=== PATIENT | male | born 1955 | race Caucasian/White ===

== ENCOUNTER → 2021-03-13 07:40 | Outpatient (BNVA) | payer MEDICARE, SELFPAY | PROVIDERS: PCP Internal Medicine; Referring Provider Internal Medicine; Visit Provider Urology | DX: R97.20 Elevated prostate specific antigen [PSA] (principal) | CPT/HCPCS: 81003; 84153 ==

== ENCOUNTER → 2021-06-15 09:02 | Outpatient (BNVA) | payer MEDICARE, SELFPAY | PROVIDERS: PCP Internal Medicine; Visit Provider Urology | DX: R97.20 Elevated prostate specific antigen [PSA] (principal) | CPT/HCPCS: 81003; 84153 ==

== ENCOUNTER → 2021-12-14 12:44 | Outpatient (BNVA) | payer MEDICARE, SELFPAY | PROVIDERS: PCP Internal Medicine; Visit Provider Urology | DX: R97.20 Elevated prostate specific antigen [PSA] (principal) | CPT/HCPCS: 81003; 84153 ==

== ENCOUNTER → 2022-02-02 08:42 | Outpatient (BNVA) | payer MEDICARE, SELFPAY | PROVIDERS: PCP Internal Medicine; Visit Provider Orthopaedic Surgery | DX: M48.062 Spinal stenosis, lumbar region with neurogenic claudication (principal) | CPT/HCPCS: 99203; 99204 ==

== ENCOUNTER 2022-03-19 06:25 | Outpatient (CLI) | payer MEDICARE, SELFPAY ==
--- NOTE | 2022-03-19 07:15 | MR_ITS ---
WS: [id number] MRI LUMBAR SPINE NONCONTRAST HISTORY: pain and weakness, pain down RIGHT leg, Bilateral feet numbness. COMPARISON: None available. TECHNIQUE: Sagittal and axial multisequence imaging is submitted. Mild increase in cervical lordosis and thoracic kyphosis. Normal lumbar alignment with no compression fractures or marrow edema. Moderate disc space narrowing and desiccation. Conus terminates normally at L1-2 disc level. L1-L2: Mild annular disc bulging and osteophytic ridging. Mild facet and ligamentum flavum hypertroph y with fluid in the facet joints. Mild encroachment upon the subarticular recesses. L2-L3: Mild annular disc bulge, osteophytic ridging, ligamentum flavum and facet arthritis. Encroachm ent upon the thecal sac and subarticular recesses. Mild foraminal narrowing. No focal disc protrusion . Mild central, bilateral subarticular and foraminal stenosis. L3-L4: Mild annular disc bulge with osteophytic ridging. Marked ligamentum flavum hypertrophy and fac et joint arthritis. Marked encroachment into the RIGHT subarticular recess and proximal foramina pred ominantly due to facet joint arthritis and ligamentum flavum hypertrophy. There is significant contac t on the RIGHT lateral thecal sac and to a lesser extent on the LEFT. Moderate to severe central and bilateral subarticular recess stenosis. Mild foraminal stenosis, RIGHT greater than LEFT. Significant contact on the traversing L4 nerve root. L4-L5: Diffuse annular disc bulging and osteophytic ridging. Severe bilateral ligamentum flavum hyper trophy and facet arthritis. Fluid in the facet joints bilaterally. Severe central, bilateral subartic ular recess and mild foraminal stenosis. There is significant contact and deformity on the exiting L5 nerve roots. Severe central stenosis with near complete obliteration of the central canal. L5-S1: Mild annular disc bulging. Very slight disc contact on the S1 nerve roots bilaterally but grea test on the LEFT. MR/MR lumbar spine wo con* [id number] IMPRESSION: 1. Severe central and bilateral subarticular recess stenosis at L4-5. Near-com plete obliteration of the central canal and significant encroachment and deform ity upon the exiting L5 nerve roots. 2. Moderate to severe central and bilateral subarticular recess stenosis at L3 -4. There is significant RIGHT facet joint encroachment into the RIGHT lateral thecal sac and subarticular recess. Stenosis involving the proximal RIGHT bettie en also. Significant contact on the L4 nerve roots. 3. Mild central, bilateral subarticular recess and foraminal stenosis at L2-3. 4. Mild disc contact on the S1 nerve roots bilaterally.
== END 2022-03-19 06:26 | disposition home or self-care (01) ==
LOC: RAD 06:26
PROVIDERS: PCP Internal Medicine; Visit Provider Orthopaedic Surgery
DX: M48.061 Spinal stenosis, lumbar region without neurogenic claudication (principal)
CPT/HCPCS: 72148

== ENCOUNTER → 2022-03-23 09:05 | Outpatient (BNVA) | payer MEDICARE, SELFPAY | PROVIDERS: PCP Internal Medicine; Visit Provider Orthopaedic Surgery | DX: M48.062 Spinal stenosis, lumbar region with neurogenic claudication (principal) | CPT/HCPCS: 99214 ==

== ENCOUNTER 2022-04-26 08:33 | Day surgery (SDC) | payer MEDICARE, SELFPAY ==
[2022-04-19 08:30] VITALS: BMI 24.4
--- NOTE | 2022-04-19 08:46 | ANES.PREANE2 ---
Pre-Anesthetic Assessment Height/Weight: Height 1.8 m Weight 79.379 kg Preop Diagnosis: Lumbar stenosis w/Neurogenic Claaudication Operation Date: 04/26/22 10:20 Proposed Procedures p Lumbar Spine Decompression L3/4 L4/5 [id number] M48.062(Not Applicable) - Emmanuel Foster DO Familial anesthetic complications: None Social Tobacco (chews) and No alcohol Exam alert, oriented x 3, clear to auscultation bilaterally and regular rate & rhythm Airway Mallampati: Class III Dentition: other (no teeth) Pulmonary None reported CV/HEM Hypertension None reported Hepatic None reported GI None reported Metabolic None reported Musc/skel Lower Back Pain Neuropsych None reported Anesthetic Plan ASA status: 2 Anesthesia: General Risk of > 500 ml blood loss (7ml/kg in children): No Medications/Allergies Home Medications Medication Instructions Recorded Confirmed Last Taken Type celecoxib 200 mg capsule 200 mg PO DAILY 03/13/21 04/19/22 Unknown History duloxetine 30 mg capsule,delayed 30 mg PO DAILY 03/13/21 04/19/22 Unknown History release duloxetine 60 mg capsule,delayed 60 mg PO DAILY 03/13/21 04/19/22 Unknown History release hydrocodone 10 mg-acetaminophen 1 tab PO Q6H PRN Pain 03/13/21 04/19/22 Unknown History 325 mg tablet lisinopril 20 2 tab PO DAILY 06/15/21 04/19/22 Unknown History mg-hydrochlorothiazide 12.5 mg tablet Allergies Allergy/AdvReac Type Severity Reaction Status Date / Time No Known Allergies Allergy Unverified 04/19/22 08:23 [facility] Anesthesia Medical History Arthritis Elevated PSA HTN (hypertension) Low back pain Surgical History Hx of hand surgery Hx of hernia repair Hx of knee surgery Hx of shoulder surgery Family History Father , IN HIS 60'S HEART ATTACK CAD (coronary artery disease) Mother , IN HER 80'S COPD (chronic obstructive pulmonary disease) Social History Smoking and tobacco status: never smoked Alcohol intake: former Marital status: Current occupational status: retired History of recent travel: No Data Anesthesia : 04/19/22 08:38 Cardiac Studies: No Data to Display
[2022-04-19 09:27] LABS: Anion Gap 14.3 (5-19); Blood Urea Nitrogen 17 mg/dL (8-23); Calcium 10.2 mg/dL (8.5-10.5); Carbon Dioxide 29 mmol/L (22-29); Chloride 101 mmol/L (98-107); Glomerular Filtration Rate 74.5 mL/min (90-130); Glucose 126 mg/dL (65-115); Osmolality Calculated 293 mOsm/kg (285-295); Potassium 4.3 mmol/L (3.5-5.1); Sodium 140 mmol/L (136-145)
[2022-04-26 08:42] VITALS: BP 138/82; PULSE 67; RESP 18; TEMP 36.3; O2SAT 99
--- NOTE | 2022-04-26 09:04 | PC.NURSE ---
Patient cancelled due to fungus on back. Patient will be rescheduled once infection is clear.
== END 2022-04-26 09:10 | disposition home or self-care (01) ==
LOC: OR 08:33
PROVIDERS: Anesthesiology; PCP Internal Medicine; Visit Provider Orthopaedic Surgery
DX: M48.062 Spinal stenosis, lumbar region with neurogenic claudication (principal); Z53.8 Procedure and treatment not carried out for other reasons; F17.220 Nicotine dependence, chewing tobacco, uncomplicated; I10 Essential (primary) hypertension
CPT/HCPCS: 80048

== ENCOUNTER 2022-06-04 05:47 | Day surgery (SDC) | payer MEDICARE, SELFPAY ==
[2022-06-03 15:54] VITALS: BMI 23.7
[2022-06-04] VITALS (10 sets, daily range): BP systolic 127–156; BP diastolic 68–87; PULSE 65–83; RESP 12–18; TEMP 36.1–37.4; O2SAT 96–100
--- NOTE | 2022-06-04 | XR_ITS ---
WS: [id number] Lumbar spine, C-arm fluoroscopy, 06/04/2022 Clinical Data: L3-4 L4-5 decompression Comparison: None. Findings: Dr. Foster performed a L3-L4, L4-L5 decompression XR/XR lumbar spine 1V [id number] Impression: Lumbar decompression.
--- NOTE | 2022-06-04 | SCC_ITS ---
Procedure done: 1. L3/4 bilateral laminectomy with partial facetectomies 2. L4/5 laminectomies with partial facetectomies 20 seconds of fluoroscopic guidance, for a cumulative dose of 8.2 mGy, was provided to Dr. Foster by the radiology department. C-arm images of the lumbar spine were saved for the patient's permanent record. [facility]
--- NOTE | 2022-06-04 06:29 | PM.HP ---
Providers/Chief Complaint Primary Care Provider: Omar Oleary DO Chief Complaint: lumbar decompression l3/4 l4/5 [id number]/m48.062 History of Present Illness Yusef Malik is a 67 year old male He rates his pain 06/21 today. He describes his pain as a constant burn. His pain starts in his low back and travels down the back of both legs with the right being worse. He describes weakness and numbness to his right leg. He states he received injections in the past without relief. His mobility is limited due to pain. Review of Systems General: Reports: 10 or more systems reviewed and unremarkable except in HPI and below Const: Denies: fever(s) or chills Eyes: Denies: blurry vision ENMT: Denies: throat pain Card: Denies: chest pain Resp: Denies: dyspnea or productive cough GI: Denies: abdominal pain, nausea or vomiting : Denies: urinary urgency Musc: Reports: back pain and extremity pain Skin/Breast: Denies: rash Neuro: Reports: numbness in extremities and weakness in extremities Psych: Denies: anxiety Endo: Denies: flushing Dexter/Lymph: Denies: easy bruising All/Imm: Denies: urticaria Medications/Allergies Home Medications Medication Instructions Recorded Confirmed Last Taken Type celecoxib 200 mg capsule 200 mg PO DAILY 03/13/21 06/04/22 06/03/22 History duloxetine 30 mg capsule,delayed 30 mg PO DAILY 03/13/21 06/04/22 06/03/22 History release duloxetine 60 mg capsule,delayed 60 mg PO DAILY 03/13/21 06/04/22 06/03/22 History release hydrocodone 10 mg-acetaminophen 1 tab PO Q6H PRN Pain 03/13/21 06/03/22 04/26/22 History 325 mg tablet lisinopril 20 2 tab PO DAILY 06/15/21 06/04/22 06/03/22 History mg-hydrochlorothiazide 12.5 mg tablet sertraline 100 mg tablet (Zoloft) 100 mg PO BEDTIME 06/03/22 06/04/22 06/03/22 History Allergies Allergy/AdvReac Type Severity Reaction Status Date / Time No Known Allergies Allergy Unverified 04/19/22 08:23 PFSH Acute PFSH: Medical History Arthritis Elevated PSA HTN (hypertension) Low back pain Surgical History Hx of hand surgery Hx of hernia repair Hx of knee surgery Hx of shoulder surgery Family History Father , IN HIS 60'S HEART ATTACK CAD (coronary artery disease) Mother , IN HER 80'S COPD (chronic obstructive pulmonary disease) Social History Smoking and tobacco status: never smoked Alcohol intake: former Marital status: Current occupational status: retired History of recent travel: No Vitals/I&O/Wt Last Vital Signs Temp 97.7 F 06/04/22 06:14 Pulse 65 06/04/22 06:14 Resp 16 06/04/22 06:14 BP 153/87 06/04/22 06:14 Pulse Ox 100 06/04/22 06:14 O2 Del Method 06/04/22 06:15 Weight last 48 hrs Weight 170 lb Weight 170 lb Physical Exam Narrative: CONSTITUTIONAL: The patient is a normal appearing [] in no apparent distress. GENERAL: Patient in no acute distress. CARDIAC: Regular rate and rhythm. CHEST: Normal inspiratory effort, normal respiratory rate. ABDOMEN: Soft and nontender. SKIN: Clear, warm and intact. NEURO?PSYCH: The patient is alert and oriented to person, place and time. Sensorv /SILT Motor StrengthShoulder abduction C5 5/5Wrist extension C6 5/5Elbow extension C7 5/5Hand Car Changer C8 5/5Finger abduction T15/5 Radial/ Ulnar/ Median n intact LowerSensory (SILT)Motor StrengthHin flexion L2/3Ant/inner thigh 5/5Hip adduction L2/3 5/5Knee extension L4 Lat thigh, 5/5Toe dorsiflexion L5 5/5Ankle dorsiflexion L5/ [id number] flexion S1 5/5 DTRBleeps 2+Triceps 2+Brachioradialis 2+Patellar 2+Achilles 2+ MUSCULOSKELETAL: [] UPPEREXTREMITIES: The patient had full active ROM in fingers, wrist, elbow, and shoulder. The patient demonstrated ability to fully flex/extend/abduct/adduct fingers, make ok sign, cross 2nd/3rd digits, extend 1st digit fully.. Radial pulse 2+, CR<2 seconds. LOWER EXTREMITIES: Pt has full, active ROM of toes, ankle, knee, and hip. Dorsalis pedis/posterior tibialis pulses 2+, CR<2 seconds. SPINE: Skin warm, dry, intact. 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
--- NOTE | 2022-06-04 06:37 | P.ANESASSM_ITS ---
Pre-Anesthetic Assessment Height/Weight: Height 1.8 m Weight 77.111 kg Temp Pulse Resp BP Pulse Ox O2 Del Method 97.7 F 65 16 153/87 100 06/04/22 06:14 06/04/22 06:14 06/04/22 06:14 06/04/22 06:14 06/04/22 06:14 06/04/22 06:15 Preop Diagnosis: Lumbar stenosis with neurogenic claudication Operation Date: 06/04/22 07:00 Proposed Procedures p Lumbar Spine Decompression L3/4 L4/5, [id number](Not Applicable) - Emmanuel Foster DO Familial anesthetic complications: None Was Beta [place] taken within 24 hours: N/A Was Clonidine taken within 24 hours: N/A Last intake: Intake Last Liquid Date 06/03/22 Last Liquid Time 18:00 Last Solid Date 06/03/22 Last Solid Time 18:00 Social Tobacco (chews) and No alcohol Exam alert, oriented x 3, clear to auscultation bilaterally and regular rate & rhythm Airway Mallampati: Class III Dentition: other (edentulous) CV/HEM Hypertension Musc/skel Lower Back Pain Anesthetic Plan ASA status: 2 Anesthesia: General Risk of > 500 ml blood loss (7ml/kg in children): No Medications/Allergies Home Medications Medication Instructions Recorded Confirmed Last Taken Type celecoxib 200 mg capsule 200 mg PO DAILY 03/13/21 06/04/22 06/03/22 History duloxetine 30 mg capsule,delayed 30 mg PO DAILY 03/13/21 06/04/22 06/03/22 History release duloxetine 60 mg capsule,delayed 60 mg PO DAILY 03/13/21 06/04/22 06/03/22 History release hydrocodone 10 mg-acetaminophen 1 tab PO Q6H PRN Pain 03/13/21 06/03/22 04/26/22 History 325 mg tablet lisinopril 20 2 tab PO DAILY 06/15/21 06/04/22 06/03/22 History mg-hydrochlorothiazide 12.5 mg tablet sertraline 100 mg tablet (Zoloft) 100 mg PO BEDTIME 06/03/22 06/04/22 06/03/22 History Allergies Allergy/AdvReac Type Severity Reaction Status Date / Time No Known Allergies Allergy Unverified 04/19/22 08:23 [facility] Anesthesia Medical History Arthritis Elevated PSA HTN (hypertension) Low back pain Surgical History Hx of hand surgery Hx of hernia repair Hx of knee surgery Hx of shoulder surgery Family History Father , IN HIS 60'S HEART ATTACK CAD (coronary artery disease) Mother , IN HER 80'S COPD (chronic obstructive pulmonary disease) Social History Smoking and tobacco status: never smoked Alcohol intake: former Marital status: Current occupational status: retired History of recent travel: No Data Anesthesia : 06/04/22 06:18 Cardiac Studies: No Data to Display
[2022-06-04] MEDS: sodium chloride 0.9% 1,000 ML 30 ML IV (06:46)
[2022-06-04 06:49] LABS: Anion Gap 14.7 (5-19); Blood Urea Nitrogen 24 mg/dL (8-23); Carbon Dioxide 30 mmol/L (22-29); Chloride 101 mmol/L (98-107); Glomerular Filtration Rate 74.5 mL/min (90-130); Glucose 130 mg/dL (65-115); Osmolality Calculated 300 mOsm/kg (285-295); Potassium 3.7 mmol/L (3.5-5.1); Sodium 142 mmol/L (136-145)
[2022-06-04] MEDS: ceFAZolin 2,000 MG in sodium chloride 0.9% (plus) 50 ML 100 MG IV (06:56)
[2022-06-04] MEDS: vancomycin 1,000 MG SDV 1000 MG XX (07:35)
--- NOTE | 2022-06-04 09:04 | P.OP_ITS ---
Operative Report Date of procedure: June 04, 2022 Pre-op diagnosis: Preop Diagnosis Lumbar stenosis with neurogenic claudication Post-op diagnosis: same Procedure done: 1. L3/4 bilateral laminectomy with partial facetectomies 2. L4/5 laminectomies with partial facetectomies Surgeon: Emmanuel Foster Client Technical Support Associate: Arnaldo Lyn Estimated blood loss (mL): 5 Procedure: 1. L3/4 bilateral laminectomy with partial facetectomies 2. L4/5 laminectomies with partial facetectomies Patient is brought to the operative suite. After undergoing anesthesia they are placed in the prone position. All areas of impingement are well padded. Patient is then prepped and draped in the normal sterile fashion. A skin incision is made over the L3/4 level. This is confirmed under c-arm guidance. A series of dilators are passed and the tubular retractor is docked on the L3 lamina. A bovie is used to clear the soft tissue off the lamina and the L 3/4 facet joint. A high speed marybeth is then used to perform the laminectomy and take down the medial aspect of the L 3/4 facet joint. A kerrison rongeure was then used to take down the remaining lamina and smooth the edged of the laminectomy up to the point where the ligamentum flavum attaches. Attention was then brought to the medial aspect of the facet joint. The remaining medial aspect of the superior and inferior aspect of the facet joint were taken down with the kerrison from the pedicle of L3 to L 4. The facet joint had significant hypertrophy. Attention was then brought to the Ligamentum Flavum. The ligament was taken down from the lamina of L3 to L4 and out medially to the remaining facet joint. The ligament was thick. The dura was then exposed. The dura was in good repair. The L3 nerve was then traced with a curette out the L3/4 foramen and found to be adequately decompressed. The L4 nerve was traced with a curette around the L4 pedicle. The lateral recess was opened with a kerrison helping to further decompress the L4 nerve. The tubular retractor was then tilted to the contralateral side. The bovie was used to take down the soft tissue on the spinous process. The high speed marybeth was used to take down the spinous process and then the contralateral lamina of L3. The kerrison rongeur was used to take down the remaining lamina to the point where the ligamentum flavum attached and the ligamentum flavum was taken down from L3 to L4. The kerrison rongeur was then used to reach across and take down the medial aspect of the contralateral L3/4 facet joint.The currete was used to trace the contralateral L3 nerve out the L3/4 foramen to make sure it was decompressed adequatesly and the L4 was traced around the L4 pedicle. The lateral recess was opened further with the kerrison to ensure the L4 is adequately decompressed. Wound is then irrigated copiously with saline and surgiflo is used to stop any bleeding. The tubular retractor is removed and A skin incision is made over the L4/5 level. This is confirmed under c-arm guidance. A series of dilators are passed and the tubular retractor is docked on the L4 lamina. A bovie is used to clear the soft tissue off the lamina and the L 4/5 facet joint. A high speed marybeth is then used to perform the laminectomy and take down the medial aspect of the L 4/5 facet joint. A kerrison rongeure was then used to take down the remaining lamina and smooth the edged of the laminectomy up to the point where the ligamentum flavum attaches. Attention was then brought to the medial aspect of the facet joint. The remaining medial aspect of the superior and inferior aspect of the facet joint were taken down with the kerrison from the pedicle of L4 to L 5. The facet joint had significant hypertrophy. Attention was then brought to the Ligamentum Flavum. The ligament was taken down from the lamina of L4 to L5 and out medially to the remaining facet joint. The ligament was thick. The dura was then exposed. The dura was in good repair. The L[] nerve was then traced with a curette out the L4/5 foramen and found to be adequately decompressed. The L5 nerve was traced with a curette around the L5 pedicle. The lateral recess was opened with a kerrison helping to further decompress the L5 nerve. The tubular retractor was then tilted to the contralateral side. The bovie was used to take down the soft tissue on the spinous process. The high speed marybeth was used to take down the spinous process and then the contralateral lamina of L4. The kerrison rongeur was used to take down the remaining lamina to the point where the ligamentum flavum attached and the ligamentum flavum was taken down from L4 to L5. The kerrison rongeur was then used to reach across and take down the medial aspect of the contralateral L4/5 facet joint.The currete was used to trace the contralateral L4 nerve out the L4/5 foramen to make sure it was decompressed adequatesly and the L5 was traced around the L5 pedicle. The lateral recess was opened further with the kerrison to ensure the L5 is adequately decompressed. Wound is then irrigated copiously with saline and surgiflo is used to stop any bleeding. The tubular retractor is removed and the wound is closed with vicryl and monocryl suture. Glue is then used to protect the wound. A sterile dressing is then placed. Patient was then placed in the supine position and transferred to the PACU in stable condition.
[2022-06-04] MEDS: fentaNYL 50 mcg/mL INJ 2mL IVP (09:07)
--- NOTE | 2022-06-04 13:34 | ANE.PACU2 ---
Inpatient post-anesthesia follow up: Airway intact: Yes Vital signs: Temperature 98.5 F Pulse Rate 66 Respiratory Rate 16 Blood Pressure 130/69 Pulse Oximetry 97 Oxygen Delivery Me thod Room Air Oxygen Flow Rate Fraction of Inspir ed Oxygen Hydration adequate: Yes Nausea and vomiting: No Pain level: 1 Mental status: Baseline
== END 2022-06-04 10:21 | disposition home or self-care (01) ==
PROVIDERS: Anesthesiology; PCP Internal Medicine; Visit Provider Orthopaedic Surgery
PROC: (CPT 63005; principal; 2022-06-04 07:00)
DX: M48.062 Spinal stenosis, lumbar region with neurogenic claudication (principal); F17.220 Nicotine dependence, chewing tobacco, uncomplicated; I10 Essential (primary) hypertension; M19.90 Unspecified osteoarthritis, unspecified site
CPT/HCPCS: 63047; 63048; 72020; 76000; 80048; J0330; J1100; J1170; J2250; J2370; J2405; J2704; J2710; J3010; J3370; J3490; J7030

== ENCOUNTER 2022-06-12 12:59 | Emergency (ER) | payer MEDICARE, SELFPAY ==
[2022-06-12] VITALS (16 sets, daily range): BP systolic 107–160; BP diastolic 63–82; PULSE 60–78; RESP 15–23; TEMP 36.8; O2SAT 86–99
--- NOTE | 2022-06-12 14:22 | MRR_ITS ---
PROCEDURE INFORMATION: Exam: MR Lumbar Spine Without and With Contrast Exam date and time: 06/12/2022 5:33 PM Age: 67 years old Clinical indication: Low back pain; Prior surgery; Surgery date: 1-6 months; Additional info: Recent surg with new onset leg weakness and urinary ret, with and without per er doc TECHNIQUE: Imaging protocol: Magnetic resonance imaging of the lumbar spine without and with contrast. Contrast material: MULTIHANCE; Contrast volume: 10 ml; Contrast route: INTRAVENOUS (IV); COMPARISON: MR lumbar spine wo con* [id number] 03/19/2022 7:31 AM FINDINGS: Bones/joints: No anterior wedging deformity. No acute fracture visualized. No destructive osseous lesions are seen. 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 Spinal cord: The distal spinal cord and conus medullaris are normal in signal and morphology. After gadolinium administration, there is no abnormal enhancement of the distal cord, conus medullaris or nerve roots of the cauda equina. There are no findings to indicate arachnoiditis. L1-L2: Moderate central stenosis due to a diffuse disc bulge, with mild bilateral neural foraminal stenosis. L2-L3: No significant disc disease at this level. L3-L4: Interval right laminectomy. Peripherally enhancing T2 signal hyperintense collection in the deep operative bed and right laminectomy defect. There is severe central stenosis, with crowding of the cauda equina nerve roots in the thecal sac, and exclusion of cerebral spinal fluid from the thecal sac at this level. Moderate to severe right and moderate left neural foraminal stenosis. L4-L5: Interval right laminectomy. Peripherally enhancing T2 signal hyperintense collection in the deep operative bed and right laminectomy defect. There is severe central stenosis, with crowding of the cauda equina nerve roots in the thecal sac, and exclusion of cerebral spinal fluid from the thecal sac at this level. There is moderate to severe bilateral neural foraminal stenosis at this level. L5-S1: Facet hypertrophy causes moderate right and mild left neural foraminal stenosis. Soft tissues: Small peripherally enhancing T2 signal hyperintensity collections are seen in the dorsal midline subcutaneous fat at the operative levels. MR/MR lumbar spine wo/w con [id number] IMPRESSION: 1. Interval right laminectomies at the L3-L4 and L4-L5 levels, with peripherally enhancing fluid collections in the deep operative beds, also in the overlying superficial fat. Findings may reflect postoperative seroma or resolving hematoma, but abscess or pseudomeningocele cannot be excluded. 2. Severe central stenosis is seen at the operative levels, with crowding of the cauda equina nerve roots in the thecal sac. Moderate central stenosis at L1-L2. 3. Neural foraminal stenosis at multiple levels, as above.
--- NOTE | 2022-06-12 14:25 | XRR_ITS ---
PROCEDURE INFORMATION: Exam: XR Abdomen Exam date and time: 06/12/2022 2:41 PM Age: 67 years old Clinical indication: Constipation TECHNIQUE: Imaging protocol: Radiologic exam of the abdomen. Views: Frontal supine view of the abdomen. 1 View. COMPARISON: OT XR lumbar spine 1V [id number] 06/04/2022 7:31 AM FINDINGS: Gastrointestinal tract: Moderate colonic stool burden. No bowel dilation. Bones/joints: Unremarkable. XR/XR abdomen 1V* [id number] IMPRESSION: No acute findings. Moderate colonic stool burden.
--- NOTE | 2022-06-12 14:25 | W.ED.GENADLT ---
HPI - General Adult General: Chief complaint: General Medical Stated complaint: weakness Time Seen by Provider: 06/12/22 14:08 History of Present Illness: Patient comes in with increased leg weakness, and urinary retention. States that about 8 days ago he had surgery on his lower back. States that since then he has been getting progressively weaker in his lower extremities. States he can no longer walk. Also states he has not been able to pee more than just occasional dribble. Associated symptoms: Deny chest pain, dyspnea, headache(s), nausea, rash, palpitations or vomiting Review of Systems Const: Denies: fever(s) or body aches Eyes: Denies: change in vision or blurry vision ENMT: Denies: throat pain or odynophagia Card: Denies: chest pain or palpitations Resp: Denies: dyspnea or productive cough GI: Reports: abdominal pain; Denies: nausea or vomiting : Reports: urinary dribbling; Denies: flank pain or dysuria Musc: Denies: neck pain or back pain Skin/Breast: Denies: rash or pruritus Neuro: Reports: weakness in extremities; Denies: headache(s) or numbness in extremities Psych: Denies: anxiety or change in appetite Endo: Denies: polyuria or excessive sweating PFSH ED PFSH: Medical History Arthritis Elevated PSA HTN (hypertension) Low back pain Surgical History Hx of hand surgery Hx of hernia repair Hx of knee surgery Hx of shoulder surgery Family History Father , IN HIS 60'S HEART ATTACK CAD (coronary artery disease) Mother , IN HER 80'S COPD (chronic obstructive pulmonary disease) Social History (System 06/04/22 @ 14:28 by Cinthya Scott) Smoking and tobacco status: never smoked Alcohol intake: former Marital status: Current occupational status: retired History of recent travel: No Physical Exam Const: COMMON NORMALS: no acute distress, patient oriented x3, healthy appearing and alert HENMT: COMMON NORMALS: normocephalic and atraumatic HEAD & SCALP: normocephalic and atraumatic Eye: COMMON NORMALS: Equal, round and reactive pupils present and EOMs intact bilaterally PUPIL: Yes Equal, round and reactive pupils present Neck/C-Spine: COMMON NORMALS: full ROM and supple Resp: COMMON NORMALS: normal respiratory effort, No retractions and No use of accessory muscles Cardio: COMMON NORMALS: regular rate and regular rhythm RATE: regular rate RHYTHM: regular rhythm GI: OTHER: Suprapubic tenderness and fullness to palpation Back/Pelvis: OTHER: Lumbar spine surgical wound is clean dry and intact. Extremity: NARRATIVE EXTREMITY EXAM: Strength is 1 out of 5 in bilateral lower extremities Neuro: COMMON NORMALS: patient oriented x3 SENSORIUM/ORIENTATION: Yes alert Psych: COMMON NORMALS: mental status grossly normal and cooperative Skin: COMMON NORMALS: no rashes or lesions noted and no wounds GENERAL SKIN EXAM: no rashes or lesions noted Course Vital Signs: Vital signs: Vital Signs Temperature 98.2 F 06/12/22 13:04 Pulse Rate 65 06/12/22 17:00 Respiratory Rate 20 H 06/12/22 17:00 Blood Pressure 120/68 06/12/22 18:30 Pulse Oximetry 97 06/12/22 18:30 [facility] - General Adult Medical Decision Making Patient comes in with increased leg weakness, and urinary retention. States that about 8 days ago he had surgery on his lower back. States that since then he has been getting progressively weaker in his lower extremities. States he can no longer walk. Also states he has not been able to pee more than just occasional dribble. On physical exam he has tenderness in the suprapubic region with bladder fullness on palpation. Strength is 1 out of 5 in bilateral lower extremities. Will check labs, give IV fluids, place [place] catheter, check MRI, and reassess. On reassessment I talked to the patient and his family about the test results. I discussed the case with orthopedic surgery, however we do not have spine surgery here at this time. I discussed the case with [facility] and they request that we transfer the patient to their emergency department, for evaluation for emergent surgery. The patient has an air [employer] membership and is requesting to be transferred by air. We only have 1 ambulance transferring another patient to another facility so we will call on transfer the patient by air. He is stable upon transfer.. Lab Data : 06/12/22 14:40 06/12/22 14:40 Radiology Impressions Lumbar Spine MRI 06/12/22 14:22 IMPRESSION: 1. Interval right laminectomies at the L3-L4 and L4-L5 levels, with peripherally enhancing fluid collections in the deep operative beds, also in the overlying superficial fat. Findings may reflect postoperative seroma or resolving hematoma, but abscess or pseudomeningocele cannot be excluded. 2. Severe central stenosis is seen at the operative levels, with crowding of the cauda equina nerve roots in the thecal sac. Moderate central stenosis at L1-L2. 3. Neural foraminal stenosis at multiple levels, as above. Abdomen X-Ray 06/12/22 14:25 IMPRESSION: No acute findings. Moderate colonic stool burden. Laboratory Results WBC 17.9 10^3/uL (4.0-10.0) H 06/12/22 14:40 RBC 4.87 10^6/uL (4.1-5.3) 06/12/22 14:40 Hgb 14.8 g/dL (11.7-16.6) 06/12/22 14:40 Hct 44.5 % (42.0-52.0) 06/12/22 14:40 MCV 91.4 fl (80-94) 06/12/22 14:40 MCH 30.4 pg (28.0-34.0) 06/12/22 14:40 MCHC 33.3 g/dL (30.0-36.0) 06/12/22 14:40 RDW 13.1 % (12.1-15.1) 06/12/22 14:40 Plt Count 327 10^3/cmm (130-400) 06/12/22 14:40 MPV 10.1 fL (7.4-10.4) 06/12/22 14:40 Neut % (Auto) 77.8 % 06/12/22 14:40 Lymph % (Auto) 10.9 % 06/12/22 14:40 [place] % (Auto) 10.1 % 06/12/22 14:40 Eos % (Auto) 0.3 % 06/12/22 14:40 Baso % (Auto) 0.3 % 06/12/22 14:40 Neut # (Auto) 13.92 10^3/uL (1.8-7.7) H 06/12/22 14:40 Lymph # (Auto) 2.0 10^3/uL (0.8-4.8) 06/12/22 14:40 [place] # (Auto) 1.8 10^3/uL (0.2-0.9) H 06/12/22 14:40 Eos # (Auto) 0.1 10^3/uL (0.0-0.8) 06/12/22 14:40 Baso # (Auto) 0.1 10^3/uL (0.0-0.1) 06/12/22 14:40 Nucleated RBC % (auto) 0 % 06/12/22 14:40 Nucleated RBCs # 0.0 /100WBC 06/12/22 14:40 ESR 41 mm/hr (0-10) H 06/12/22 14:40 Sodium 138 mmol/L (136-145) 06/12/22 14:40 Potassium 3.4 mmol/L (3.5-5.1) L 06/12/22 14:40 Chloride 96 mmol/L (98-107) L 06/12/22 14:40 Carbon Dioxide 25 mmol/L (22-29) 06/12/22 14:40 Anion Gap 20.4 (5-19) H 06/12/22 14:40 BUN 34 mg/dL (8-23) H 06/12/22 14:40 Creatinine 1.8 mg/dL (0.7-1.2) H 06/12/22 14:40 GFR Calculation 37.8 mL/min (90-130) L 06/12/22 14:40 Glucose 134 mg/dL (65-115) H 06/12/22 14:40 Calculated Osmolality 296 mOsm/kg (285-295) H 06/12/22 14:40 Calcium 10.1 mg/dL (8.5-10.5) 06/12/22 14:40 Total Bilirubin 1.0 mg/dL (0.15-1.2) 06/12/22 14:40 AST 19 U/L (0-40) 06/12/22 14:40 ALT 20 U/L (0-41) 06/12/22 14:40 Alkaline Phosphatase 60 U/L (40-130) 06/12/22 14:40 C-Reactive Protein 60.3 mg/L (0.0-4.9) H 06/12/22 14:40 Total Protein 7.0 g/dL (6.6-8.7) 06/12/22 14:40 Albumin 3.8 g/dL (3.5-5.2) 06/12/22 14:40 Globulin 3.2 g/dL (1.3-4.6) 06/12/22 14:40 Urine Color Dark yellow (Yellow) 06/12/22 15:10 Urine Appearance Clear (CLEAR) 06/12/22 15:10 Urine pH 6.0 (5-7) 06/12/22 15:10 Ur Specific [place] 1.020 (1.005-1.030) 06/12/22 15:10 Urine Protein Negative 06/12/22 15:10 Urine Glucose (UA) Negative (Normal) 06/12/22 15:10 Urine Ketones Negative (Negative) 06/12/22 15:10 Urine Blood Moderate (Negative) A 06/12/22 15:10 Urine Nitrate Negative 06/12/22 15:10 Urine Bilirubin Negative (Negative) 06/12/22 15:10 Urine Urobilinogen 0.2 mg/dL (Negative) 06/12/22 15:10 Ur Leukocyte Esterase Negative (Negative) 06/12/22 15:10 Urine RBC 15-25 /hpf (0-2) H 06/12/22 15:10 Urine WBC 5-10 /hpf (0-5) H 06/12/22 15:10 Ur Squamous Epith Cells None /hpf (0-5) 06/12/22 15:10 Amorphous Sediment Not Reportable 06/12/22 15:10 Urine Bacteria Trace /hpf (NONE) 06/12/22 15:10 Critical Care Time Critical Care Time: Critical Care Time: Yes Total Critical Care Time: 75 Attestation: This case had a high probability of a clinically significant, sudden, or life threatening deterioration of this patient's condition which required my full and direct attention, intervention and personal management. Discharge Plan Discharge Patient Disposition: Transfer to ED Clinical Impression: Cauda equina syndrome, DAREN (acute kidney injury) Condition: Stable Prescriptions: No Action duloxetine 60 mg capsule,delayed release(DR/EC) 60 mg PO DAILY celecoxib 200 mg capsule 200 mg PO DAILY duloxetine 30 mg capsule,delayed release(DR/EC) 30 mg PO DAILY lisinopril-hydrochlorothiazide 20-12.5 mg tablet 2 tab PO DAILY sertraline [Zoloft] 100 mg Tablet 100 mg PO BEDTIME Discharge Orders: Transfer Out of Facility (Order); Ordered 06/12/22 Ordered By: Arsalan Castillo Referrals: Omar Oleary DO [Primary Care Provider] - Coding Level of Care Code ED Highway Safety Engineer for Chg Fwd Exam Comprehensive
[2022-06-12 15:09] LABS: Basophils # 0.1 10^3/uL (0.0-0.1); Basophils % 0.3 %; Eosinophils # 0.1 10^3/uL (0.0-0.8); Eosinophils % 0.3 %; Hematocrit 44.5 % (42.0-52.0); Hemoglobin 14.8 g/dL (11.7-16.6); Lymphocytes % 10.9 %; Mean Corpuscular HGB Conc 33.3 g/dL (30.0-36.0); Mean Corpuscular Hemoglobin 30.4 pg (28.0-34.0); Mean Corpuscular Volume 91.4 fl (80-94); Mean Platelet Volume 10.1 fL (7.4-10.4); Monocytes # 1.8 10^3/uL (0.2-0.9); Monocytes % 10.1 %; Neutrophils # 13.92 10^3/uL (1.8-7.7); Neutrophils % 77.8 %; Nucleated Red Blood Cells % 0 %; Platelet Count 327 10^3/cmm (130-400); Red Blood Count 4.87 10^6/uL (4.1-5.3); Red Cell Distribution Width 13.1 % (12.1-15.1); White Blood Count 17.9 10^3/uL (4.0-10.0)
[2022-06-12 15:19] LABS: Alanine Aminotransferase 20 U/L (0-41); Albumin Level 3.8 g/dL (3.5-5.2); Alkaline Phosphatase 60 U/L (40-130); Aspartate Amino Transferase 19 U/L (0-40); Blood Urea Nitrogen 34 mg/dL (8-23); C Reactive Protein 60.3 mg/L (0.0-4.9); Calcium 10.1 mg/dL (8.5-10.5); Carbon Dioxide 25 mmol/L (22-29); Chloride 96 mmol/L (98-107); Creatinine Clr Calc Pharmacy 40.7784; Globulin 3.2 g/dL (1.3-4.6); Glomerular Filtration Rate 37.8 mL/min (90-130); Glucose 134 mg/dL (65-115); Osmolality Calculated 296 mOsm/kg (285-295); Sodium 138 mmol/L (136-145)
[2022-06-12 15:32] LABS: Anion Gap 20.4 (5-19); Potassium 3.4 mmol/L (3.5-5.1)
[2022-06-12 15:50] LABS: Erythrocyte Sedimentation Rate 41 mm/hr (0-10)
[2022-06-12] MEDS: sodium chloride 0.9% 1,000 ML 999 ML IV (16:07)
[2022-06-12 16:35] LABS: Bilirubin Urine Negative (Negative); Blood Urine Moderate (Negative); Glucose Urine UA Negative (Normal); Ketones Urine Negative (Negative); Leukocyte Esterase Urine Negative (Negative); Nitrate Urine Negative; Protein Urine Negative; Urine Appearance Clear (CLEAR); Urine Color Dark yellow (Yellow); Urobilinogen Urine 0.2 mg/dL (Negative)
[2022-06-12 16:36] LABS: Add Urine Microscopic? YES
[2022-06-12 16:37] LABS: Add Urine Culture? Yes; Bacteria Urine TRACE /hpf; RBC Urine 15-25 /hpf (0-2)
[2022-06-12] MEDS: gadobenate dimeglumine 20 mL vial IV (18:16)
== END 2022-06-12 22:21 ==
PROVIDERS: Emergency Provider Emergency Medicine; PCP Internal Medicine
DX: M48.061 Spinal stenosis, lumbar region without neurogenic claudication (principal); G83.4 Cauda equina syndrome; R33.9 Retention of urine, unspecified; I10 Essential (primary) hypertension; Z98.890 Other specified postprocedural states
CPT/HCPCS: 51702; 72158; 74018; 80053; 81001; 85025; 85651; 86140; 87086; 99285; A9577; J7030

== ENCOUNTER 2022-06-17 10:15 | Outpatient (CLI) | payer MEDICARE, SELFPAY ==
[2022-06-17 11:23] LABS: Prostate Specific AG Urology 9.11 ng/mL (0-4)
== END 2022-06-17 10:16 | disposition home or self-care (01) ==
LOC: LAB 10:17
PROVIDERS: PCP Internal Medicine; Visit Provider Urology
DX: R97.20 Elevated prostate specific antigen [PSA] (principal); Z47.89 Encounter for other orthopedic aftercare
CPT/HCPCS: 84153; 99024

== ENCOUNTER → 2022-06-25 09:37 | Outpatient (BNVA) | payer MEDICARE, SELFPAY | PROVIDERS: PCP Internal Medicine; Visit Provider Urology | DX: R33.9 Retention of urine, unspecified (principal); R97.20 Elevated prostate specific antigen [PSA] | CPT/HCPCS: 52000; 99214 ==

== ENCOUNTER → 2022-07-13 10:26 | Outpatient (BNVA) | payer MEDICARE, SELFPAY | PROVIDERS: PCP Internal Medicine; Visit Provider Orthopaedic Surgery | DX: Z47.89 Encounter for other orthopedic aftercare (principal) | CPT/HCPCS: 99024 ==

== ENCOUNTER → 2022-08-24 09:58 | Outpatient (BNVA) | payer MEDICARE, SELFPAY | PROVIDERS: PCP Internal Medicine; Visit Provider Orthopaedic Surgery | DX: Z47.89 Encounter for other orthopedic aftercare (principal); M79.89 Other specified soft tissue disorders; R20.0 Anesthesia of skin | CPT/HCPCS: 99024; 99213 ==

== ENCOUNTER → 2022-08-27 08:15 | Outpatient (BNVA) | payer MEDICARE, SELFPAY | PROVIDERS: PCP Internal Medicine; Visit Provider Urology | DX: N30.20 Other chronic cystitis without hematuria (principal); R97.20 Elevated prostate specific antigen [PSA]; R33.9 Retention of urine, unspecified | CPT/HCPCS: 51741; 51798; 81003; 87077; 87086; 87186; 99213 ==

== ENCOUNTER 2022-09-07 06:31 | Outpatient (CLI) | payer MEDICARE, SELFPAY ==
--- NOTE | 2022-09-07 07:00 | CT_ITS ---
WS: [id number] CT ANGIOGRAPHY OF THE LOWER EXTREMITIES WITH RUNOFF TO THE ANKLES HISTORY: numbness, swelling, venous insufficiency of RLE TECHNIQUE: Arterial injection is performed during imaging to evaluate the lower extremities with runo ff to the ankles. MIP and volume rendering imaging has also been performed. All images are reviewed. All CT scans at [facility] use at least one of these dose optimization techniques: automated e xposure control; mA and/or kV adjustment per patient size (includes targeted exams where dose is matc hed to clinical indication); or iterative reconstruction. Contrast: Omnipaque 350; 95 mL IV. DLP: 753.81 mGy.cm COMPARISON: None available. Imaging against just above the aortic bifurcation. The visualized infrarenal aorta is normal caliber. Inferior mesenteric artery is patent. Visualized visceral organs in the lower abdomen and pelvis are negative. No evidence for ascites or adenopathy. No GI tract obstruction. Normal appendix. Prostate is enlarged. Prostate encroaches into the urinary bladder. RIGHT lower extremity arterial system: Common, internal and external iliac arteries are patent. There is a small amount of plaque involving the femoral artery. Superficial femoral artery and the deep pr ofunda are normal caliber. Scattered plaque in the mid to distal SFA to the popliteal artery but ther e is no occlusion. Contrast opacification distal to the knee becomes limited anterior tibial artery i s not identified beyond the proximal tibia. Posterior tibial and the peroneal arteries appear intact. LEFT lower extremity arterial system: Common, internal and external iliac arteries are patent. Small amount of plaque and intimal thickening at the common femoral artery. Deep profunda and SFA are intac t. Increasing plaque in the distal SFA but no occlusion. Small amount of plaque at the tibioperoneal bifurcation. Anterior tibial artery visualization limited to the proximal tibia. Small caliber with m inimal opacification of the posterior tibial and peroneal arteries. Large RIGHT laminectomy defects are noted at L3-4 and L4-5. Postsurgical changes are noted in the sof [place] tissues. CT/[place] [id number] IMPRESSION: 1. Mild atherosclerotic disease throughout the lower extremity arterial system , greatest within the femoral arteries. No occlusions. 2. Poor runoff to the ankles via 3 vessels below the knee. I favor the poor ru noff is due to poor bolus tracking and not atherosclerotic disease. Evaluation by vascular ultrasound may be helpful to confirm arterial patency.
[2022-09-07 07:12] LABS: Blood Urea Nitrogen 21 mg/dL (8-23); Glomerular Filtration Rate 46.7 mL/min (90-130)
[2022-09-07] MEDS: iohexol 350 mg/mL 500 mL Btl (per mL) IV (07:28)
== END 2022-09-07 06:32 | disposition home or self-care (01) ==
LOC: RAD 06:33
PROVIDERS: Radiology Diagnostic Radiology; PCP Internal Medicine; Visit Provider Orthopaedic Surgery
DX: I87.2 Venous insufficiency (chronic) (peripheral) (principal); M79.89 Other specified soft tissue disorders; R20.0 Anesthesia of skin; I70.90 Unspecified atherosclerosis
CPT/HCPCS: 73706; 82565; 84520; Q9967

== ENCOUNTER → 2022-09-14 14:30 | Outpatient (BNVA) | payer MEDICARE, SELFPAY | PROVIDERS: PCP Internal Medicine; Visit Provider Orthopaedic Surgery | DX: M48.062 Spinal stenosis, lumbar region with neurogenic claudication (principal) | CPT/HCPCS: 99213 ==

== ENCOUNTER 2022-10-26 07:16 | Outpatient (CLI) | payer MEDICARE, SELFPAY ==
[2022-10-26 08:09] LABS: Prostate Specific AG Urology 7.91 ng/mL (0-4)
== END 2022-10-26 07:17 | disposition home or self-care (01) ==
PROVIDERS: PCP Internal Medicine; Visit Provider Urology
DX: R97.20 Elevated prostate specific antigen [PSA] (principal)
CPT/HCPCS: 36415; 84153

== ENCOUNTER → 2022-11-02 09:14 | Outpatient (BNVA) | payer MEDICARE, SELFPAY | PROVIDERS: PCP Internal Medicine; Visit Provider Urology | DX: R97.20 Elevated prostate specific antigen [PSA] (principal); R33.9 Retention of urine, unspecified | CPT/HCPCS: 51798; 81003; 99213 ==

== ENCOUNTER 2023-01-05 13:56 | Outpatient (CLI) | payer MEDICARE, SELFPAY ==
--- NOTE | 2023-01-05 14:13 | MR_ITS ---
WS: [id number] MRI BRAIN WITH AND WITHOUT CONTRAST HISTORY: ABNORMAL INVOLUNTARY MOVEMENT COMPARISON: None available. TECHNIQUE: Multiplanar imaging performed through the brain with MultiHance 20 ml's IV. No acute infarcts are seen. Freeman-white matter differentiation is well preserved. . Minimal atrophy an d small vessel ischemic disease. No large territory infarct. No susceptibility artifacts or prior lacunar infarcts. Ventricles and extra-axial spaces are normal. Clivus and pituitary gland are normal. Visualized posterior fossa and brainstem are also normal. Postcontrast images are negative for masses or vascular malformations. Dural venous sinuses are normal. Paranasal sinuses: Well aerated with no significant disease. Mastoid air cells: Moderate effusion in the RIGHT mastoid air cell. No abnormality noted along the in ternal auditory canal. Calvarium and scalp: Normal. MR/MR head wo/w con [id number] IMPRESSION: 1. Mild atrophy with no acute infarct. No hemorrhage. 2. No intracranial masses. No abnormality at the cerebellopontine angle. 3. RIGHT mastoid air cell effusion.
[2023-01-05] MEDS: gadobenate dimeglumine 20 mL vial IV (15:39)
== END 2023-01-05 13:57 | disposition home or self-care (01) ==
LOC: RAD 14:03
PROVIDERS: PCP Internal Medicine; Visit Provider Internal Medicine
DX: R25.9 Unspecified abnormal involuntary movements (principal)
CPT/HCPCS: 70553; A9577

== ENCOUNTER → 2023-01-06 07:38 | Outpatient (BNVA) | payer MEDICARE, SELFPAY | PROVIDERS: PCP Internal Medicine; Visit Provider Specialist | DX: R25.1 Tremor, unspecified (principal); R25.9 Unspecified abnormal involuntary movements | CPT/HCPCS: 95812 ==

== ENCOUNTER 2023-03-01 07:18 | Outpatient (CLI) | payer MEDICARE, SELFPAY ==
[2023-03-01 08:09] LABS: Prostate Specific AG Urology 5.35 ng/mL (0-4)
== END 2023-03-01 07:19 | disposition home or self-care (01) ==
LOC: LAB 07:21
PROVIDERS: PCP Internal Medicine; Visit Provider Urology
DX: R97.20 Elevated prostate specific antigen [PSA] (principal)
CPT/HCPCS: 36415; 84153

== ENCOUNTER → 2023-03-08 08:03 | Outpatient (BNVA) | payer MEDICARE, SELFPAY | PROVIDERS: PCP Internal Medicine; Visit Provider Urology | DX: R97.20 Elevated prostate specific antigen [PSA] (principal); R33.9 Retention of urine, unspecified | CPT/HCPCS: 51798; 81003; 99213 ==